=== PATIENT | male | born 1950 | race Caucasian/White ===

== ENCOUNTER 2020-06-17 15:55 | Outpatient (RCR) | payer MEDICARE, BC | END 2020-06-22 | LOC: OT 15:55 | PROVIDERS: ATTEND Plastic Surgery | DX: M21.372 Foot drop, left foot (principal); M62.81 Muscle weakness (generalized); R26.2 Difficulty in walking, not elsewhere classified; M25.672 Stiffness of left ankle, not elsewhere classified; M54.5 Low back pain; M48.061 Spinal stenosis, lumbar region without neurogenic claudication ==

== ENCOUNTER 2020-07-06 09:00 | Outpatient (RCR) | payer MEDICARE, BC | END 2020-07-23 | LOC: OT 09:00 | PROVIDERS: ATTEND Plastic Surgery | DX: S53.432A Radial collateral ligament sprain of left elbow, initial encounter (principal) ==